=== PATIENT | female | born 1955 | race Caucasian/White ===

== ENCOUNTER → 2018-03-02 | Outpatient (CLI) | payer BC ==
[~2018-03-02] MED LIST: Ativan1 MG PO; ERGO50000 PO; FLUO10 PO; FLUO20; PROG100 TD
== END | disposition home or self-care (01) ==
LOC: LAB SHORT 11:20 → PLD 11:20
DX: D22.61 Melanocytic nevi of right upper limb, including shoulder (principal); D48.5 Neoplasm of uncertain behavior of skin
CPT/HCPCS: 88305

== ENCOUNTER 2018-10-17 07:58 | Day surgery (SDC) | payer BC ==
[~2018-10-17] VITALS: Ht 152.4 cm; Wt 52.3 kg
[~2018-10-17 07:58] MED LIST changes: +MULTI-VITAMIN-1 EACH PO; +VITAMIN D5000 UNIT PO
--- NOTE | 2018-10-17 08:36 | NUR ---
Ambulatory in Day SurgeryPatient states colon prep results clear. History, Chart, Medications and Allergies reviewed before start of procedure.Lungs clear T/O to Auscultation. Patient confirms NPO status and agrees with scheduled surgery. Patient States Post-Procedure ride home has been arranged.
--- NOTE | 2018-10-17 09:20 | NUR ---
10/17/18 0920 Mignon Agustin History, Chart, Medications and Allergies reviewed before start of procedure.PATIENT DETERMINED TO BE ASA APPROPRIATE FOR PROPOFOL SEDATION PRIOR TO START OF PROCEDURE BY .MONITOR INTACT WITH CONTINUOUS PULSE OXIMETRY AND INTERMITTENT BP.3-LEAD EKG REVIEWED WITH PHYSICIAN PRIOR TO START OF PROCEDURE.O2 VIA N/C INTACT THROUGHOUT SEDATION/PROCEDURE.
--- NOTE | 2018-10-17 10:25 | NUR ---
"DAY SURGERY RN | ASSUMED CARE FROM TRAVIS HARRELL. VSS. A/O. NO ISSUES. DISCHARGE INSTRUCTIONS GIVEN TO PATIENT WITH FAMILY PRESENT. PATIENT TAKEN IN WHEELCHAIR TO FRONT ENTRANCE BY THIS RN. PT INTO PRIVATE VEHICLE WITH HARD HAT DIVER."
== END 2018-10-17 22:38 | disposition home or self-care (01) ==
LOC: ORSCMMR 07:58 → ORD 09:00 → ORSCMMR 22:38
PROVIDERS: Internal Medicine Gastroenterology
PROC: 0DJD8ZZ Inspection of Lower Intestinal Tract, Via Natural or Artificial Opening Endoscopic (ICD-10-PCS; principal; 2018-10-17 09:00)
DX: Z12.11 Encounter for screening for malignant neoplasm of colon (principal); K64.8 Other hemorrhoids; F32.9 Major depressive disorder, single episode, unspecified; Z79.899 Other long term (current) drug therapy
CPT/HCPCS: J2704; J7120

== ENCOUNTER → 2019-05-30 | Outpatient (CLI) | payer BC ==
[2019-05-30 10:35] LABS: BASOPHILS ABSOLUTE AUTO 0.06 K/mm3 (0.00-0.23); BASOPHILS PERCENT AUTO 1 % (0-2); EOSINOPHILS ABSOLUTE AUTO 0.05 K/mm3 (0.00-0.68); EOSINOPHILS PERCENT AUTO 1 % (0-6); Hematocrit 42.8 % (33.0-51.0); Hemoglobin 14.3 g/dL (11.5-16.0); IMMATURE GRAN ABSOLUTE AUTO 0.01 K/mm3 (0.00-0.10); IMMATURE GRAN PERCENT AUTO 0 % (0-1); LYMPHOCYTES ABSOLUTE AUTO 1.85 K/mm3 (0.84-5.20); LYMPHOCYTES PERCENT AUTO 43 % (21-46); MONOCYTES ABSOLUTE AUTO 0.37 K/mm3 (0.16-1.47); MONOCYTES PERCENT AUTO 9 % (4-13); Mean Corpuscular HGB 28.5 pg (26.0-34.0); Mean Corpuscular HGB Conc 33.4 g/dL (31.5-36.5); Mean Corpuscular Volume 85 fL (80-100); NEUTROPHILS ABSOLUTE AUTO 1.97 K/mm3 (1.96-9.15); NEUTROPHILS PERCENT AUTO 46 % (41-73); Platelet Count 253 K/mm3 (150-400); RDW Coefficient Variation 12.2 % (11.7-14.2); RDW Standard Deviation 37.5 fL (35.1-46.3); Red Blood Cell Count 5.02 M/mm3 (3.80-5.20); White Blood Cell Count 4.31 K/mm3 (4.00-11.30)
[2019-05-30 10:48] LABS: Anion Gap 9 mmol/L (6-16); Blood Urea Nitrogen 12 mg/dL (8-24); Bun/Creatinine Ratio 15.6 (12.0-20.0); CO2, Blood 30 mmol/L (21-32); Chloride, Blood 104 mmol/L (98-108); Creatinine, Blood 0.77 mg/dL (0.40-1.00); Glomerular Filtration Rate >60 (60-); Glucose, Blood 104 mg/dL (70-99); Potassium, Blood 4.2 mmol/L (3.5-5.5); Sodium, Blood 143 mmol/L (136-145)
[2019-05-30 10:50] LABS: Troponin I <0.017 ng/mL (0.000-0.040)
== END | disposition home or self-care (01) ==
LOC: LAB SHORT 10:29 → LAB EV 10:29
PROVIDERS: Family Medicine
DX: R07.89 Other chest pain (principal)
CPT/HCPCS: 80048; 84484; 85025

== ENCOUNTER 2019-06-05 23:52 | Emergency (ER) | payer BC ==
[~2019-06-05] VITALS: Ht 152.4 cm; Wt 52.2 kg
[2019-06-06 00:28] LABS: BASOPHILS ABSOLUTE AUTO 0.05 K/mm3 (0.00-0.23); BASOPHILS PERCENT AUTO 1 % (0-2); EOSINOPHILS ABSOLUTE AUTO 0.12 K/mm3 (0.00-0.68); EOSINOPHILS PERCENT AUTO 2 % (0-6); Hematocrit 40.6 % (33.0-51.0); Hemoglobin 13.4 g/dL (11.5-16.0); IMMATURE GRAN PERCENT AUTO 0 % (0-1); LYMPHOCYTES ABSOLUTE AUTO 2.82 K/mm3 (0.84-5.20); LYMPHOCYTES PERCENT AUTO 54 % (21-46); MONOCYTES ABSOLUTE AUTO 0.49 K/mm3 (0.16-1.47); MONOCYTES PERCENT AUTO 9 % (4-13); Mean Corpuscular HGB 28.5 pg (26.0-34.0); Mean Corpuscular Volume 86 fL (80-100); Mean Platelet Volume 9.8 fL (9.1-12.4); NEUTROPHILS ABSOLUTE AUTO 1.78 K/mm3 (1.96-9.15); NEUTROPHILS PERCENT AUTO 34 % (41-73); Platelet Count 248 K/mm3 (150-400); RDW Coefficient Variation 11.9 % (11.7-14.2); RDW Standard Deviation 37.6 fL (35.1-46.3); White Blood Cell Count 5.26 K/mm3 (4.00-11.30)
[2019-06-06 00:52] LABS: Alanine Aminotransfer (ALT/SGP 26 U/L (12-78); Albumin, Blood 4.3 g/dL (3.4-5.0); Albumin/Globulin Ratio 1.4 (0.8-1.8); Alk Phos 67 U/L (50-136); Anion Gap 6 mmol/L (6-16); Aspartate Aminotrans (AST/SGOT 17 U/L (12-37); Bilirubin, Total 0.2 mg/dL (0.1-1.0); Blood Urea Nitrogen 13 mg/dL (8-24); Bun/Creatinine Ratio 18.1 (12.0-20.0); CO2, Blood 28 mmol/L (21-32); Chloride, Blood 107 mmol/L (98-108); Creatinine, Blood 0.72 mg/dL (0.40-1.00); Glomerular Filtration Rate >60 (60-); Glucose, Blood 108 mg/dL (70-99); Potassium, Blood 3.8 mmol/L (3.5-5.5); Sodium, Blood 141 mmol/L (136-145); Total Protein, Blood 7.3 g/dL (6.4-8.2); Troponin I <0.015 ng/mL (0.000-0.040)
[2019-06-06 01:22] LABS: Free Thyroxine 0.95 ng/dL (0.70-1.60)
[2019-06-06 01:25] LABS: Thyroid Stimulating Hormone 6.91 uIU/mL (0.360-4.800)
== END 2019-06-06 01:56 | disposition home or self-care (01) ==
LOC: ER 23:52
PROVIDERS: Emergency Medicine; Physician Assistant
DX: R00.2 Palpitations (principal); R07.9 Chest pain, unspecified; Z88.8 Allergy status to other drugs, medicaments and biological substances
CPT/HCPCS: 36415; 71046; 80053; 84439; 84443; 84484; 85025; 93005; 93010; 99284-25

== ENCOUNTER → 2023-03-16 | Outpatient (CLI) | payer OTHER ==
[2023-03-17 12:44] LABS: Candida species (DNA Probe) Negative (NEGATIVE); G. vaginalis (DNA Probe) Positive (NEGATIVE); T. vaginalis (DNA Probe) Negative (NEGATIVE)
[2023-03-17 16:09] LABS: HPV 16 Negative (Negative); HPV 18 Negative (Negative); HPV OTHER HR TYPES Negative (Negative)
== END | disposition home or self-care (01) ==
LOC: LAB 14:28 → LAB SHORT 14:28
PROVIDERS: Family Medicine
DX: Z01.419 Encounter for gynecological examination (general) (routine) without abnormal findings (principal); N76.0 Acute vaginitis
CPT/HCPCS: 87480; 87510; 87624; 87660; G0145